=== PATIENT | female | born 1965 | race Caucasian/White ===

== ENCOUNTER 2020-09-24 15:54 | Emergency (ER) | payer OTHER ==
[~2020-09-24] VITALS: Ht 165.1 cm; Wt 104.3 kg
[~2020-09-24 15:54] MED LIST: ATOR10 PO; Hair, Skin & N1 EACH PO; LOSA50 PO; METHI10 PO; METO25; OMEP20ER PO
[2020-09-24 16:24] LABS: BASOPHILS ABSOLUTE AUTO 0.07 K/mm3 (0.00-0.23); BASOPHILS PERCENT AUTO 1 % (0-2); EOSINOPHILS ABSOLUTE AUTO 0.28 K/mm3 (0.00-0.68); EOSINOPHILS PERCENT AUTO 3 % (0-6); Hematocrit 21.6 % (33.0-51.0); IMMATURE GRAN PERCENT AUTO 1 % (0-1); LYMPHOCYTES ABSOLUTE AUTO 2.69 K/mm3 (0.84-5.20); LYMPHOCYTES PERCENT AUTO 26 % (21-46); MONOCYTES ABSOLUTE AUTO 0.78 K/mm3 (0.16-1.47); MONOCYTES PERCENT AUTO 8 % (4-13); Mean Corpuscular HGB 30.5 pg (26.0-34.0); Mean Corpuscular HGB Conc 27.8 g/dL (31.5-36.5); Mean Corpuscular Volume 110 fL (80-100); Mean Platelet Volume 11.4 fL (9.1-12.4); NEUTROPHILS ABSOLUTE AUTO 6.39 K/mm3 (1.96-9.15); NEUTROPHILS PERCENT AUTO 62 % (41-73); NRBC ABSOLUTE 0.14 K/mm3 (0.00-0.02); NRBC Auto 1.4 /100 WBC (0.0-0.2); Platelet Count 297 K/mm3 (150-400); RDW Coefficient Variation 17.7 % (11.7-14.2); RDW Standard Deviation 68.2 fL (35.1-46.3); Red Blood Cell Count 1.97 M/mm3 (3.80-5.20); White Blood Cell Count 10.31 K/mm3 (4.00-11.30)
[2020-09-24 16:50] LABS: Alanine Aminotransfer (ALT/SGP 38 U/L (12-78); Albumin, Blood 3.4 g/dL (3.4-5.0); Alk Phos 54 U/L (50-136); Anion Gap 8 mmol/L (6-16); Aspartate Aminotrans (AST/SGOT 41 U/L (12-37); Bilirubin, Total 0.3 mg/dL (0.1-1.0); Blood Urea Nitrogen 13 mg/dL (8-24); Bun/Creatinine Ratio 17.6 (12.0-20.0); CO2, Blood 24 mmol/L (21-32); Calcium, Blood 8.7 mg/dL (8.5-10.1); Chloride, Blood 110 mmol/L (98-108); Creatinine, Blood 0.74 mg/dL (0.40-1.00); Globulin, Blood 3.4 g/dL (2.2-4.0); Glomerular Filtration Rate >60 (60-); Glucose, Blood 115 mg/dL (70-99); Potassium, Blood 3.7 mmol/L (3.5-5.5); Sodium, Blood 142 mmol/L (136-145); Total Protein, Blood 6.8 g/dL (6.4-8.2)
[2020-10-07] MEDS ORDERED: METHI10 PO (16:09)
[2020-10-10] MEDS ORDERED: PRAVASTATIN SOD20 MG PO (08:37)
== END 2020-09-24 21:47 | disposition home or self-care (01) ==
LOC: ER 15:54
PROVIDERS: Physician Assistant
DX: K64.8 Other hemorrhoids (principal); D64.9 Anemia, unspecified; I10 Essential (primary) hypertension; Z79.899 Other long term (current) drug therapy; Z88.1 Allergy status to other antibiotic agents; Z88.8 Allergy status to other drugs, medicaments and biological substances
CPT/HCPCS: 36415; 36430; 80053; 85025; 86850; 86900; 86901; 86923; 99283-25; J7030; P9016

== ENCOUNTER 2020-10-14 09:37 | Day surgery (SDC) | payer OTHER ==
[~2020-10-14] VITALS: Ht 165.1 cm; Wt 101.5 kg
[~2020-10-14 09:37] MED LIST changes: +PRAVASTATIN SOD20 MG PO
--- NOTE | 2020-10-14 13:25 | NUR ---
10/14/20 1325 [facility] NO PRE OP MEDS PRIOR TO PROCEDURE, VERIFIED WITH DR MONCADA.
[2020-10-14 14:19] LABS: BASOPHILS ABSOLUTE AUTO 0.06 K/mm3 (0.00-0.23); BASOPHILS PERCENT AUTO 1 % (0-2); EOSINOPHILS ABSOLUTE AUTO 0.15 K/mm3 (0.00-0.68); EOSINOPHILS PERCENT AUTO 2 % (0-6); Hematocrit 29.9 % (33.0-51.0); Hemoglobin 8.7 g/dL (11.5-16.0); IMMATURE GRAN ABSOLUTE AUTO 0.05 K/mm3 (0.00-0.10); IMMATURE GRAN PERCENT AUTO 1 % (0-1); LYMPHOCYTES ABSOLUTE AUTO 1.34 K/mm3 (0.84-5.20); LYMPHOCYTES PERCENT AUTO 16 % (21-46); MONOCYTES ABSOLUTE AUTO 0.32 K/mm3 (0.16-1.47); MONOCYTES PERCENT AUTO 4 % (4-13); Mean Corpuscular HGB Conc 29.1 g/dL (31.5-36.5); Mean Corpuscular Volume 100 fL (80-100); Mean Platelet Volume 11.6 fL (9.1-12.4); NEUTROPHILS ABSOLUTE AUTO 6.68 K/mm3 (1.96-9.15); NEUTROPHILS PERCENT AUTO 78 % (41-73); Platelet Count 325 K/mm3 (150-400); RDW Coefficient Variation 16.4 % (11.7-14.2); RDW Standard Deviation 59.8 fL (35.1-46.3)
--- NOTE | 2020-10-14 15:17 | NUR ---
GAUZE DRESSING FELL OUT WHEN PT GOT OUT OF BED TO GET DRESSING. NO ACUTE BLEEDING NOTED FROM DRESSING. Patient up to Ambulate independently. Gait steady. Discharge instructions reviewed with patient. Patient verbalizes understanding. Copy given to patient to take home. Patient States Post-Procedure ride home has been arranged. Discharged via wheelchair to private car for ride home.
== END 2020-10-14 15:25 | disposition home or self-care (01) ==
LOC: ORSCMMR 09:37 → ORD 11:00 → ORSCMMR 11:00
PROVIDERS: Surgery
PROC: 06BY0ZC Excision of Hemorrhoidal Plexus, Open Approach (ICD-10-PCS; principal; 2020-10-14 11:00)
DX: K62.5 Hemorrhage of anus and rectum (principal); K60.2 Anal fissure, unspecified; K64.1 Second degree hemorrhoids; I10 Essential (primary) hypertension; K21.9 Gastro-esophageal reflux disease without esophagitis; E66.9 Obesity, unspecified; Z68.37 Body mass index [BMI] 37.0-37.9, adult; D64.9 Anemia, unspecified; E78.5 Hyperlipidemia, unspecified; Z79.899 Other long term (current) drug therapy
CPT/HCPCS: 36415; 85025; 88304; J0585; J1100; J1885; J2250; J2405; J2704; J3010; J7120

== ENCOUNTER 2020-10-20 16:57 | Emergency (ER) | payer OTHER ==
[~2020-10-20] VITALS: Ht 165.1 cm; Wt 99.3 kg
[2020-10-20 18:12] LABS: Source, Urine Clean Catch
[2020-10-20 18:28] LABS: Alanine Aminotransfer (ALT/SGP 32 U/L (12-78); Albumin, Blood 3.5 g/dL (3.4-5.0); Albumin/Globulin Ratio 0.9 (0.8-1.8); Alk Phos 68 U/L (50-136); Anion Gap 6 mmol/L (6-16); Aspartate Aminotrans (AST/SGOT 20 U/L (12-37); Bilirubin, Total 0.2 mg/dL (0.1-1.0); Blood Urea Nitrogen 11 mg/dL (8-24); Bun/Creatinine Ratio 18.3 (12.0-20.0); CO2, Blood 26 mmol/L (21-32); Calcium, Blood 9.7 mg/dL (8.5-10.1); Chloride, Blood 105 mmol/L (98-108); Globulin, Blood 3.7 g/dL (2.2-4.0); Glomerular Filtration Rate >60 (60-); Glucose, Blood 121 mg/dL (70-99); Potassium, Blood 3.4 mmol/L (3.5-5.5); Sodium, Blood 137 mmol/L (136-145); Total Protein, Blood 7.2 g/dL (6.4-8.2)
[2020-10-20 18:40] LABS: Appearance, Urine Clear (Clear); Bilirubin, Urine Neg (Neg); Blood, Urine Neg (Neg); Color, Urine Yellow (P-Yellow); Glucose Qualitative, Urine Neg (Neg); Ketones, Urine Neg (Neg); Leukocyte Esterase, Urine 1+ (Neg); Nitrite, Urine Neg (Neg); Protein, Urine 1+ (Neg); Urobilinogen, Urine NORM (Normal)
[2020-10-20 18:50] LABS: Bacteria Mod /hpf; Red Blood Cells, Urine 0-2 /hpf (0-2); Squamous Epithelial Cells Few /hpf (Few)
[2020-10-20 18:51] LABS: Calcium Oxalate Crystals Few /hpf; Mucus Heavy (0-Heavy)
[2020-10-20] MEDS ORDERED: CEPH500 PO (22:12)
== END 2020-10-20 22:26 | disposition home or self-care (01) ==
LOC: ER 16:57
PROVIDERS: Physician Assistant
DX: N39.0 Urinary tract infection, site not specified (principal); D64.9 Anemia, unspecified; I10 Essential (primary) hypertension; Z98.890 Other specified postprocedural states; Z88.5 Allergy status to narcotic agent; Z79.899 Other long term (current) drug therapy
CPT/HCPCS: 36415; 80053; 81001; 86850; 86900; 86901; 87086; 96365; 96375; 99283-25; J0696; J2270; J2405